=== PATIENT | male | born 1945 | race Caucasian/White ===

== ENCOUNTER 2017-01-04 05:45 | Inpatient (IN) | payer MEDICARE, OTHER ==
[2017-01-03 17:13] VITALS: BMI 32.5
[~2017-01-04] VITALS: Ht 175.3 cm; Wt 100.0 kg
[2017-01-04] VITALS (25 sets, daily range): BP systolic 138–172; BP diastolic 58–77; PULSE 84–112; RESP 16–31; Ht 175.3 cm; Wt 100.0 kg
[2017-01-04] MEDS ORDERED: GABAPENTIN 300 MG CAP PO SCH ×2 (06:00→21:00)
[2017-01-04] MEDS ORDERED: SOD CHLORIDE 0.9% 100 ML, TRANEXAMIC ACID 3,000 MG IRR SCH ×2 (06:00)
[2017-01-04] MEDS ORDERED: traMADol 50 MG TAB PO SCH (06:00)
[2017-01-04] MEDS ORDERED: TRANEXAMIC ACID 1,000 MG in SOD CHLORIDE 0.9% 100 ML IVPB SCH (06:00)
[2017-01-04] MEDS ORDERED: BUPIVACAINE 0.5% (SDV) 30 ML, morphine SULFATE (PF) 8 MG, EPINEPHrine 0.3 MG, KETOROLAC... IRR SCH ×7 (06:00)
[2017-01-04] MEDS ORDERED: CEFAZOLIN 2 GM/50 ML (PMX) 50 ML IVPB SCH (06:00)
[2017-01-04] MEDS ORDERED: DEXAMETHASONE 1 MG TAB PO SCH (06:00)
[2017-01-04] MEDS ORDERED: BUPIVACAINE 0.5%/EPI (SDV) 10 ML INJ ONE (06:42)
[2017-01-04] MEDS ORDERED: THROMBIN 5000 UNIT VIAL ONE (06:42)
[2017-01-04] MEDS ORDERED: POLYMYXIN/BACITRACIN 1L IRRIG ONE (06:43)
[2017-01-04] MEDS ORDERED: CA CHLORIDE 10% 10 ML SYRINGE ONE (06:43)
--- NOTE | 2017-01-04 06:59 | HPN ---
Date/Time of Note Date/Time of Note DATE: 01/04/17 TIME: 06:59 Interval H&P Admission Note Pt. seen H&P reviewed: No system changes ASHLEY DAVILA MD Jan 04, 2017 06:59
[2017-01-04] MEDS ORDERED: SUGAMMADEX SODIUM 200 MG/2 ML VIAL IV ONE (07:00)
[2017-01-04] MEDS ORDERED: HYDROmorphONE 1 MG/ML SYG IV STA (07:48)
[2017-01-04] MEDS ORDERED: ONDANSETRON 4 MG INJ ONE (07:56)
[2017-01-04] MEDS ORDERED: PROPOFOL 20 ML ONE (07:56)
[2017-01-04] MEDS ORDERED: GLYCOPYRROLATE 0.4 MG INJ ONE (07:56)
[2017-01-04] MEDS ORDERED: ROCURONIUM 50 MG INJ ONE (07:56)
[2017-01-04] MEDS ORDERED: CEFAZOLIN 1 GM INJ ONE (07:56)
[2017-01-04] MEDS ORDERED: MIDAZOLAM 1 MG/ML 2 ML INJ ONE (07:56)
[2017-01-04] MEDS ORDERED: FENTAnyl 50 MCG/ML VIAL ONE (07:56)
[2017-01-04] MEDS ORDERED: NEOSTIGMINE 3 MG/3 ML SYRINGE ONE (07:56)
[2017-01-04] MEDS ORDERED: DEXAMETHASONE 4 MG/ML 1 ML INJ ONE (07:57)
[2017-01-04] MEDS ORDERED: ROPIVACAINE 0.5 % 30 ML VIAL ONE (07:57)
[2017-01-04] MEDS ORDERED: IMO2 PO (08:10)
[2017-01-04] MEDS ORDERED: DAPA10TA PO (08:11)
[2017-01-04] MEDS ORDERED: LACT20SO2 PO (08:12)
[2017-01-04] MEDS ORDERED: METO100T13 PO (08:15)
[2017-01-04] MEDS ORDERED: AMLO-147 PO (08:16)
[2017-01-04] MEDS ORDERED: GABA300C16 PO (08:18)
[2017-01-04] MEDS ORDERED: METF-480 PO (08:19)
[2017-01-04] MEDS ORDERED: BACL10TA PO (08:22)
[2017-01-04] MEDS ORDERED: IBUP800T25 PO (08:22)
--- NOTE | 2017-01-04 08:22 | RADRPT ---
PROCEDURE: XR Chest. CLINICAL INDICATION: left shoulder replacement TECHNIQUE: Single frontal view of the chest was obtained COMPARISON: None FINDINGS: Left shoulder arthroplasty hardware is partially imaged. Lower cervical spine fixation hardware is partially imaged. The cardiomediastinal silhouette is within normal limits. There are atherosclerotic calcifications of the thoracic aorta. There is apparent elevation of the right hemidiaphragm. There is mild bibasilar atelectasis. No pneumothorax, pleural effusion, or parenchymal consolidation is identified. There are degenerative changes of the visualized spine and bilateral acromioclavicular joints. IMPRESSION: 1. No evidence of acute cardiopulmonary process. 2. Mild bibasilar atelectasis. 3. Thoracic aortic atherosclerotic disease. RPTAT: EE Physician Niko Date Time Electronically viewed and signed by Physician Niko on 01/04/2017 08:22 /
[2017-01-04] MEDS ORDERED: SIMV10TA PO (08:23)
[2017-01-04] MEDS ORDERED: ASPI-664 PO (08:23)
[2017-01-04] MEDS ORDERED: DULO60CA59 PO (08:23)
[2017-01-04 08:24] LABS: BASOPHILS % 0.4 % (0.0-2.0); EOSINOPHILS # 0.1 10^3/ul (0.0-0.5); EOSINOPHILS % 1.7 % (0.0-7.0); HEMATOCRIT 40.3 % (42.0-52.0); LYMPHOCYTES # 0.9 10^3/ul (0.8-2.9); MEAN CORPUSCULAR HEMOGLOBIN 23.6 pg (29.0-33.0); MEAN CORPUSCULAR HGB CONC 29.8 g/dl (32.0-37.0); MEAN CORPUSCULAR VOLUME 79.2 fl (82.0-101.0); MEAN PLATELET VOLUME 9.6 fl (7.4-10.4); MONOCYTE # 0.4 10^3/ul (0.3-0.9); MONOCYTES % 8.5 % (0.0-11.0); NEUTROPHIL # 3.5 10^3/ul (1.6-7.5); NEUTROPHILS % 71.2 % (39.0-77.0); PLATELET COUNT 179 10^3/UL (140-415); RED BLOOD COUNT 5.09 10^6/ul (4.70-6.10); RED CELL DISTRIBUTION WIDTH 16.3 % (11.5-14.5); WHITE BLOOD COUNT 4.8 10^3/ul (4.8-10.8)
[2017-01-04] MEDS ORDERED: TAMS0.4C2 PO (08:25)
[2017-01-04] MEDS ORDERED: FINA5TAB4 PO (08:26)
[2017-01-04] MEDS ORDERED: MIRT15TA5 PO (08:26)
[2017-01-04 08:33] LABS: ADD UMIC YES; UR ASCORBIC ACID NEGATIVE (NEGATIVE); UR BILIRUBIN (Dip) NEGATIVE (NEGATIVE); UR BLOOD (Dip) 1+ mg/dL (NEGATIVE); UR CLARITY SLIGHTLY CLOUDY (CLEAR); UR COLOR YELLOW (YELLOW); UR GLUCOSE (Dip) 3+ mg/dL (NEGATIVE); UR KETONES (Dip) 1+ mg/dL (NEGATIVE); UR LEUKOCYTE ESTERASE (Dip) NEGATIVE Leu/ul (NEGATIVE); UR NITRITE (Dip) NEGATIVE (NEGATIVE); UR RBC 4 /HPF (0-5); UR SPECIFIC GRAVITY (Dip) 1.028 (1.003-1.030); UR TOTAL PROTEIN (Dip) 2+ mg/dl (NEGATIVE); UR UROBILINOGEN (Dip) NEGATIVE (NEGATIVE)
[2017-01-04 08:48] LABS: ALBUMIN 4.4 g/dl (3.3-4.9); ALBUMIN/GLOBULIN RATIO 1.02; BILIRUBIN,INDIRECT 0.1 mg/dl (0-1.1); BILIRUBIN,TOTAL 0.1 mg/dl (0.2-1.3); TOTAL PROTEIN 8.7 g/dl (6.1-8.1)
[2017-01-04 08:56] LABS: CALCIUM 9.7 mg/dl (8.4-10.2); CREATININE 0.69 mg/dl (0.61-1.24); POTASSIUM 4.1 mmol/L (3.5-5.1)
[2017-01-04 09:01] LABS: INR 0.97; PROTIME 12.9 Sec (12.2-14.2)
[2017-01-04 09:02] LABS: PARTIAL THROMBOPLASTIN TIME 28.9 Sec (25.0-35.0)
[2017-01-04] MEDS ORDERED: LABETALOL HCL 20MG INJ ONE (10:12)
[2017-01-04] MEDS ORDERED: DIPHENHYDRAMINE 50 MG INJ IV PRN ×2 (10:30→12:00)
[2017-01-04] MEDS ORDERED: MEPERIDINE 25 MG INJ IV PRN (10:30)
[2017-01-04] MEDS ORDERED: IPRATROPIUM (NEB) 0.5 MG/2.5 ML AMP HHN PRN (10:30)
[2017-01-04] MEDS ORDERED: TRIMETHOBENZAMIDE 100 MG/ML VIAL IM PRN (10:30)
[2017-01-04] MEDS ORDERED: ONDANSETRON 4 MG INJ IV PRN ×2 (10:30→12:00)
[2017-01-04] MEDS ORDERED: EPHEDrine SULFATE 50 MG/5 ML SYG IV PRN (10:30)
[2017-01-04] MEDS ORDERED: HYDROmorphONE (0.2 MG/ML) 10ML SYG IV PRN ×3 (10:30)
[2017-01-04] MEDS ORDERED: ALBUTEROL 0.083% (NEB) 2.5 MG/3 ML AMP HHN PRN (10:30)
[2017-01-04] MEDS ORDERED: FENTAnyl 50 MCG/ML VIAL IV PRN ×3 (10:30)
[2017-01-04] MEDS ORDERED: OXYCODONE/ACETAMINOPHEN (5/325) TAB PO PRN ×3 (10:30→12:00)
[2017-01-04] MEDS ORDERED: hydrALAzine 20 MG INJ IV PRN (10:30)
[2017-01-04] MEDS ORDERED: LABETALOL HCL 20MG INJ IV PRN (10:30)
[2017-01-04] MEDS ORDERED: MIDAZOLAM 1 MG/ML 2 ML INJ IV PRN (10:30)
--- NOTE | 2017-01-04 11:57 | OPR ---
Date/Time of Note Date/Time of Note DATE: 01/04/17 TIME: 11:53 Operative Report Procedure Date: Jan 04, 2017 Preoperative Diagnosis Failed total shoulder replacement, left Postoperative Diagnosis 1 Failed left total shoulder replacement 2 Massive unrepairable rotator cuff tear Operation Performed Revision of left total shoulder replacement to reverse total shoulder replacement. Surgeon: ASHLEY DAVILA MD Breaker Machine Operator: NATALIE GUTIERREZ MD Anesthesia: general Estimated Blood Loss: 50 - 100 ml's Complications: None Pt Condition Post Procedure: stable Disposition: PACU Procedure Description MASTER CRAFTSMAN SURGEON: Natalie Gutierrez MD was asked to be present at my request as a result of the complexity associated with this procedure. This includes positioning of the extremity, manipulation and protection of the neurovascular structures. In my opinion, the assistance offered by a surgical attendant is insufficient and Dr. Gutierrez should be compensated for his time PROCEDURE IN DETAIL: Following the administration of general endotracheal anesthesia the patient was placed in the beachchair position. The left upper extremity was seen to be subluxed in dislocated anterior and superiorly. The previously made incision was then extended proximally after sterile prep and drape of the extremity. The incision was then carried through the subdeltoid plane and the deltoid was retracted laterally. Significant scar tissue was encountered. The humeral head was then delivered and seen to be subluxed superiorly with no rotator cuff superiorly. There is a very small portion of the subscapularis that was intact and the posterior cuff was also intact. The humeral component was then removed relatively atraumatically. Attention was then directed to the glenoid. The glenoid baseplate which was a metal-backed baseplate, was well fixed. This was trabecular metal. The polyethylene liner was removed completely and then using a series of drilling and dilators a central drill hole was then created in anticipation of placement of a baseplate. A [place] standard baseplate with a 10 mm central peg was then used for fixation on the glenoid face. The 4 peripheral screws were then fixed with solid fixation. A 38 mm glenoid sphere was then applied with solid fixation. Attention was then directed back to the humerus. The humerus was then reamed up to the 12 mm size and an extended length 12 mm humeral component with a standard metaphysis was then implanted. An additional 10 mm paper box cutter was then used for stability as well as a 9 mm polyethylene liner. Good stable fixation was obtained. The joint was then thoroughly irrigated taken through full range of motion with no instability. Closure was in layers followed by a perineal dressing. The final cover was watertight. Estimated blood loss was procedure was approximately 100 cc postoperative radiographs will be obtained in the recovery room. ASHLEY DAVILA MD Jan 04, 2017 11:57
--- NOTE | 2017-01-04 11:58 | PDOCDIS ---
Discharge Instructions DIAGNOSIS Discharge Diagnosis Failed left total shoulder replacement CONDITION Patient Condition: Good HOME CARE INSTRUCTIONS: Diet Instructions: Regular ACTIVITY: Activity Restrictions: Slowly Increase Activity Bathing Restrictions: Shower FOLLOW UP/APPOINTMENTS Follow-up Plan 2 weeks postoperatively SCHOOL/WORK RELEASE May return to School/Work with: With Restrictions School/Work Release Comment: Sling usage for 1 month. In addition, tabletop activities with 5 pound ASHLEY Hermosillo MD Jan 04, 2017 11:58
[2017-01-04] MEDS ORDERED: MAGNESIUM HYDROXIDE 30ML CUP PO PRN (12:00)
[2017-01-04] MEDS ORDERED: LOPERAMIDE 2 MG CAP PO PRN (12:00)
[2017-01-04] MEDS ORDERED: morphine 4 MG/ML VIAL IV PRN (12:00)
[2017-01-04] MEDS ORDERED: TRANEXAMIC ACID 1,000 MG in SOD CHLORIDE 0.9% 100 ML IV ONE (12:00)
[2017-01-04] MEDS ORDERED: ACETAMINOPHEN 500 MG TAB PO PRN (12:00)
[2017-01-04] MEDS ORDERED: KETOROLAC 15 MG INJ IV PRN (12:00)
[2017-01-04] MEDS ORDERED: ZOLPIDEM 5 MG TAB PO PRN (12:00)
[2017-01-04] MEDS ORDERED: INSULIN REGULAR 10 ML INJ SC ONE (12:30)
--- NOTE | 2017-01-04 12:54 | RADRPT ---
PROCEDURE: Shoulder radiograph. CLINICAL INDICATION: Postoperative examination. COMPARISON: None relevant listed. TECHNIQUE: Internal rotation and Y-views of the left shoulder. FINDINGS: Alignment of the left shoulder arthroplasty is anatomic. No hardware fracture. No suspicious santiago-hardware lucency. There are a few scattered metallic densities about the operative bed. Moderate soft tissue swelling about the operative bed. Moderate joint space narrowing with marginal osteophytes at the acromioclavicular joint. IMPRESSION: Alignment of left shoulder arthroplasty is anatomic. RPTAT: PP Physician Halle Date Time Electronically viewed and signed by Physician Halle on 01/04/2017 12:54 LG/
[2017-01-04] MEDS ORDERED: GLUCOSE GEL 15 GRAM TUBE PO PRN ×2 (13:00)
[2017-01-04] MEDS ORDERED: DEXTROSE 50% 50 ML SYRINGE IV PRN ×2 (13:00)
[2017-01-04] MEDS ORDERED: GLUCAGON 1 MG INJ IM PRN (13:00)
[2017-01-04] MEDS ORDERED: GLUCOSE GEL 15 GRAM TUBE BUCCAL PRN (13:00)
--- NOTE | 2017-01-04 14:31 | RADRPT ---
Vent Rate: 105 bpm RR Interval: 0 msec ID Interval: 150 msec QRS Duration: 84 msec QT Interval: 348 msec QTC Interval: 459 msec P-R-T [place]: -2 - 26 - 2 degrees Sinus tachycardia Otherwise normal ECG Electronically Signed By: Daniel Hawkins [id number]
[2017-01-04] MEDS: CEFAZOLIN 1 GM/50 ML (PMX) 50 ML IVPB SCH ×2 (14:59→21:23)
[2017-01-04] MEDS: [UNRECOGNIZED DRUG - OTHER] XX SCH ×2 (16:00→23:32)
[2017-01-04] MEDS: DAPAGLIFLOZIN XX SCH ×2 (16:00→23:32)
[2017-01-04] MEDS: metFORMIN 850 MG TAB PO SCH (18:27)
[2017-01-04] MEDS: DEXAMETHASONE 2 MG TAB PO SCH ×2 (18:28→23:28)
[2017-01-04] MEDS: morphine 4 MG/ML VIAL IV PRN (19:55)
[2017-01-04] MEDS: BACLOFEN 10 MG TAB PO SCH (20:35)
[2017-01-04] MEDS: LACTULOSE 30ML CUP PO SCH (20:35)
[2017-01-04] MEDS: SENNA/DOCUSATE NA (8.6MG/50MG) TAB PO SCH (20:36)
[2017-01-04] MEDS ORDERED: MIRTAZAPINE 15 MG TAB PO SCH (21:00)
[2017-01-04] MEDS ORDERED: ATORVASTATIN 10 MG TAB PO SCH (21:00)
[2017-01-04] MEDS ORDERED: FINASTERIDE 5 MG TAB PO SCH (21:00)
[2017-01-04] MEDS ORDERED: TAMSULOSIN (SR) 0.4 MG CAP PO SCH (21:00)
[2017-01-04] MEDS: METOPROLOL (XL) 100 MG TAB PO SCH (21:23)
[2017-01-05 02:00] VITALS: BP 143/71; RESP 20
[2017-01-05] MEDS: morphine 4 MG/ML VIAL IV PRN (04:40)
[2017-01-05] MEDS: DEXAMETHASONE 2 MG TAB PO SCH (06:00)
[2017-01-05] MEDS: CEFAZOLIN 1 GM/50 ML (PMX) 50 ML IVPB SCH (06:00)
--- NOTE | 2017-01-05 06:56 | PN ---
Date/Time of Note Date/Time of Note DATE: 01/05/17 TIME: 06:56 24 hour Interval Summary Patient is awake and alert with minimal discomfort this morning. Physical Exam Physical examination: His wound is clean and dry. He is neurologically intact. He has no signs of DVT. Vital Signs Date Time Temp Pulse Resp B/P Pulse Ox O2 Delivery O2 Flow Rate FiO2 01/05/17 02:00 97.3 78 20 143/71 97 01/04/17 20:00 Nasal Cannula 2.0 Intake and Output 01/04/17 01/04/17 01/05/17 15:00 23:00 07:00 Intake Total 2200 ml 1100 ml 650 ml Output Total 50 ml 300 ml 900 ml Balance 2150 ml 800 ml -250 ml VTE Prophylaxis VTE Prophylaxis Intervention: anti-embolic stocking Lines/Catheters IV Catheter Type: Saline Lock Wood in Place: No Results Result Diagram: 01/04/17 0802 01/04/17 0802 Results 24hrs Laboratory Tests Test 01/04/17 07:42 01/04/17 08:02 01/04/17 12:14 01/04/17 13:18 Bedside Glucose 211 239 H 214 White Blood Count 4.8 Red Blood Count 5.09 Hemoglobin 12.0 L Hematocrit 40.3 L Mean Corpuscular Volume 79.2 L Mean Corpuscular Hemoglobin 23.6 L Mean Corpuscular Hemoglobin Concent 29.8 L Red Cell Distribution Width 16.3 H Platelet Count 179 Mean Platelet Volume 9.6 Neutrophils % 71.2 Lymphocytes % 18.0 Monocytes % 8.5 Eosinophils % 1.7 Basophils % 0.4 Nucleated Red Blood Cells % 0.0 Neutrophils # 3.5 Lymphocytes # 0.9 Monocytes # 0.4 Eosinophils # 0.1 Basophils # 0.0 Nucleated Red Blood Cells # 0.0 Prothrombin Time 12.9 Prothrombin Time Ratio 1.0 INR International Normalized Ratio 0.97 Activated Partial Thromboplast Time 28.9 Urine Color YELLOW Urine Clarity SLIGHTLY CLOUDY A Urine pH 5.0 Urine Specific [place] 1.028 Urine Ketones 1+ H Urine Nitrite NEGATIVE Urine Bilirubin NEGATIVE Urine Urobilinogen NEGATIVE Urine Leukocyte Esterase NEGATIVE Urine Microscopic RBC 4 Urine Microscopic WBC 1 Urine Hemoglobin 1+ H Urine Glucose 3+ H Urine Total Protein 2+ H Sodium Level 146 H Potassium Level 4.1 Chloride Level 102 Carbon Dioxide Level 26 Anion Gap 22 H Blood Urea Nitrogen 16 Creatinine 0.69 Glucose Level 190 Calcium Level 9.7 Total Bilirubin 0.1 L Direct Bilirubin 0.00 Indirect Bilirubin 0.1 Aspartate Amino Transf (AST/SGOT) 28 Alanine Aminotransferase (ALT/SGPT) 33 Alkaline Phosphatase 100 Total Protein 8.7 H Albumin 4.4 Globulin 4.30 H Albumin/Globulin Ratio 1.02 Test 01/04/17 17:35 Bedside Glucose 265 H Assessment/Plan Assessment/Plan Assessment: The patient will be discharged this morning to [facility]. This has been previously arranged. He will follow-up in the office in 2 weeks. Medications Medications Home Meds Reported Medications Mirtazapine* (Mirtazapine*) 15 Mg Tablet, 15 MG PO HS, TAB 01/04/17 Finasteride* (Finasteride*) 5 Mg Tablet, 5 MG PO QHS, TAB 01/04/17 Tamsulosin Hcl* (Tamsulosin Hcl*) 0.4 Mg Cap.er.24h, 0.4 MG PO HS, CAP 01/04/17 Simvastatin* (Zocor*) 10 Mg Tablet, 10 MG PO QHS, #30 TAB 01/04/17 Duloxetine Hcl* (Duloxetine Hcl*) 60 Mg Capsule.dr, 60 MG PO QAM, #30 CAP 01/04/17 Aspirin* (Aspirin* EC) 81 Mg Tablet.dr, 81 MG PO DAILY, TAB 01/04/17 Baclofen* (Baclofen*) 10 Mg Tablet, 10 MG PO BID, TAB 01/04/17 Ibuprofen* (Ibuprofen*) 800 Mg Tab, 800 MG PO TID Y for PAIN, TAB 01/04/17 Metformin* (Glucophage*) 850 Mg Tablet, 850 MG PO BID, #30 TAB 01/04/17 Gabapentin* (Gabapentin*) 300 Mg Capsule, 900 MG PO TID, #270 CAP 01/04/17 Amlodipine Besylate* (Amlodipine Besylate*) 10 Mg Tablet, 10 MG PO QAM, #30 TAB 01/04/17 Metoprolol Succinate* (Toprol XL*) 100 Mg Tab.sr.24h, 100 MG PO BID, #30 TAB 01/04/17 Lactulose* (Lactulose*) 20 Gm/30 Ml Solution, 20 GM PO TID, ML 01/04/17 Dapagliflozin Propanediol (Farxiga) 10 Mg Tablet, 10 MG PO DAILY, #30 TAB 01/04/17 Loperamide Hcl* (Loperamide Hcl*) 2 Mg Cap, 2 MG PO QID Y for DIARRHEA, CAP 01/04/17 ASHLEY DAVILA MD Jan 05, 2017 06:56
--- NOTE | 2017-01-05 06:58 | DS ---
Date/Time of Note Date/Time of Note DATE: 01/05/17 TIME: 06:57 Discharge Summary Admission/Discharge Info Admit Date/Time Jan 04, 2017 at 05:45 Discharge Date/Time January 05, 2017 Discharge Diagnosis Failed left total shoulder replacement Patient Condition: Good Procedures Revision of left total shoulder to reverse total shoulder Hx of Present Illness Instability of the left total shoulder replacement secondary to rotator cuff tearing Hospital Course Patient was admitted and underwent an uncomplicated procedure. On postoperative day #1 he was afebrile and stable. He is to be discharged to his nursing care facility to be followed up in the office in 2 weeks Home Meds Reported Medications Mirtazapine* (Mirtazapine*) 15 Mg Tablet, 15 MG PO HS, TAB 01/04/17 Finasteride* (Finasteride*) 5 Mg Tablet, 5 MG PO QHS, TAB 01/04/17 Tamsulosin Hcl* (Tamsulosin Hcl*) 0.4 Mg Cap.er.24h, 0.4 MG PO HS, CAP 01/04/17 Simvastatin* (Zocor*) 10 Mg Tablet, 10 MG PO QHS, #30 TAB 01/04/17 Duloxetine Hcl* (Duloxetine Hcl*) 60 Mg Capsule.dr, 60 MG PO QAM, #30 CAP 01/04/17 Aspirin* (Aspirin* EC) 81 Mg Tablet.dr, 81 MG PO DAILY, TAB 01/04/17 Baclofen* (Baclofen*) 10 Mg Tablet, 10 MG PO BID, TAB 01/04/17 Ibuprofen* (Ibuprofen*) 800 Mg Tab, 800 MG PO TID Y for PAIN, TAB 01/04/17 Metformin* (Glucophage*) 850 Mg Tablet, 850 MG PO BID, #30 TAB 01/04/17 Gabapentin* (Gabapentin*) 300 Mg Capsule, 900 MG PO TID, #270 CAP 01/04/17 Amlodipine Besylate* (Amlodipine Besylate*) 10 Mg Tablet, 10 MG PO QAM, #30 TAB 01/04/17 Metoprolol Succinate* (Toprol XL*) 100 Mg Tab.sr.24h, 100 MG PO BID, #30 TAB 01/04/17 Lactulose* (Lactulose*) 20 Gm/30 Ml Solution, 20 GM PO TID, ML 01/04/17 Dapagliflozin Propanediol (Farxiga) 10 Mg Tablet, 10 MG PO DAILY, #30 TAB 01/04/17 Loperamide Hcl* (Loperamide Hcl*) 2 Mg Cap, 2 MG PO QID Y for DIARRHEA, CAP 01/04/17 Primary Care Provider Naveen Love Pending Labs Laboratory Tests Test 01/04/17 07:42 01/04/17 08:02 01/04/17 12:14 01/04/17 13:18 Bedside Glucose 211mg/dL (70-220) 239mg/dL (70-220) 214mg/dL (70-220) White Blood Count 4.810^3/ul (4.8-10.8) Red Blood Count 5.0910^6/ul (4.70-6.10) Hemoglobin 12.0g/dl (14.0-18.0) Hematocrit 40.3% (42.0-52.0) Mean Corpuscular Volume 79.2fl (82.0-101.0) Mean Corpuscular Hemoglobin 23.6pg (29.0-33.0) Mean Corpuscular Hemoglobin Concent 29.8g/dl (32.0-37.0) Red Cell Distribution Width 16.3% (11.5-14.5) Platelet Count 10562^3/UL (140-415) Mean Platelet Volume 9.6fl (7.4-10.4) Neutrophils % 71.2% (39.0-77.0) Lymphocytes % 18.0% (15.0-51.0) Monocytes % 8.5% (0.0-11.0) Eosinophils % 1.7% (0.0-7.0) Basophils % 0.4% (0.0-2.0) Nucleated Red Blood Cells % 0.0/100WBC (0.0-0.0) Neutrophils # 3.510^3/ul (1.6-7.5) Lymphocytes # 0.910^3/ul (0.8-2.9) Monocytes # 0.410^3/ul (0.3-0.9) Eosinophils # 0.110^3/ul (0.0-0.5) Basophils # 0.010^3/ul (0.0-0.1) Nucleated Red Blood Cells # 0.010^3/ul (0.0-0.0) Prothrombin Time 12.9Sec (12.2-14.2) Prothrombin Time Ratio 1.0 INR International Normalized Ratio 0.97 Activated Partial Thromboplast Time 28.9Sec (25.0-35.0) Urine Color YELLOW (YELLOW) Urine Clarity SLIGHTLY CLOUDY (CLEAR) Urine pH 5.0 (5.0-9.0) Urine Specific [place] 1.028 (1.003-1.030) Urine Ketones 1+mg/dL (NEGATIVE) Urine Nitrite NEGATIVEmg/dL (NEGATIVE) Urine Bilirubin NEGATIVEmg/dL (NEGATIVE) Urine Urobilinogen NEGATIVEmg/dL (NEGATIVE) Urine Leukocyte Esterase NEGATIVELeu/ul (NEGATIVE) Urine Microscopic RBC 4/HPF (0-5) Urine Microscopic WBC 1/HPF (0-5) Urine Hemoglobin 1+mg/dL (NEGATIVE) Urine Glucose 3+mg/dL (NEGATIVE) Urine Total Protein 2+mg/dl (NEGATIVE) Sodium Level 146mmol/L (135-144) Potassium Level 4.1mmol/L (3.5-5.1) Chloride Level 102mmol/L (97-110) Carbon Dioxide Level 26mmol/L (21-31) Anion Gap 22 (8-16) Blood Urea Nitrogen 16mg/dl (7-20) Creatinine 0.69mg/dl (0.61-1.24) Glucose Level 190mg/dl (70-220) Calcium Level 9.7mg/dl (8.4-10.2) Total Bilirubin 0.1mg/dl (0.2-1.3) Direct Bilirubin 0.00mg/dl (0.00-0.20) Indirect Bilirubin 0.1mg/dl (0-1.1) Aspartate Amino Transf (AST/SGOT) 28IU/L (15-46) Alanine Aminotransferase (ALT/SGPT) 33IU/L (13-69) Alkaline Phosphatase 100IU/L (42-121) Total Protein 8.7g/dl (6.1-8.1) Albumin 4.4g/dl (3.3-4.9) Globulin 4.30g/dl (1.3-3.2) Albumin/Globulin Ratio 1.02 Test 01/04/17 17:35 Bedside Glucose 265mg/dL (70-220) ASHLEY DAVILA MD Jan 05, 2017 06:58
[2017-01-05 08:13] VITALS: BP 141/69; RESP 20
[2017-01-05] MEDS: SENNA/DOCUSATE NA (8.6MG/50MG) TAB PO SCH (08:38)
[2017-01-05] MEDS: BACLOFEN 10 MG TAB PO SCH (08:38)
[2017-01-05] MEDS: metFORMIN 850 MG TAB PO SCH (08:39)
[2017-01-05] MEDS: DAPAGLIFLOZIN XX SCH ×2 (08:39→16:16)
[2017-01-05] MEDS: [UNRECOGNIZED DRUG - OTHER] XX SCH ×2 (08:39→16:16)
[2017-01-05] MEDS: LACTULOSE 30ML CUP PO SCH ×2 (08:40→13:00)
[2017-01-05] MEDS: METOPROLOL (XL) 100 MG TAB PO SCH (08:42)
[2017-01-05] MEDS ORDERED: AMLODIPINE 10 MG TAB PO SCH (09:00)
[2017-01-05] MEDS ORDERED: NON-FORMULARY/PATIENT OWN MED (Dapagliflozin Propanediol (Farxiga) 10 MG) PO SCH (09:00)
[2017-01-05] MEDS ORDERED: ASPIRIN 81 MG TAB PO SCH (09:00)
[2017-01-05] MEDS ORDERED: DULOXETINE 30 MG CAP DR PO SCH (09:00)
[2017-01-05] MEDS: OXYCODONE/ACETAMINOPHEN (5/325) TAB PO PRN ×2 (09:57→13:49)
[2017-01-05 15:00] VITALS: BP 130/72; RESP 18
== END 2017-01-05 17:35 | DRG 483 ==
LOC: REC 05:45 → MS1 13:39
PROVIDERS: ADMIT Orthopaedic Surgery; ATTEND Orthopaedic Surgery
PROC: 0RPK0JZ Removal of Synthetic Substitute from Left Shoulder Joint, Open Approach (ICD-10-PCS; 2017-01-04)
PROC: 0RRK00Z Replacement of Left Shoulder Joint with Reverse Ball and Socket Synthetic Substitute, Open Approach (ICD-10-PCS; principal; 2017-01-04 09:30)
DX: T84.028A Dislocation of other internal joint prosthesis, initial encounter (principal); S43.422A Sprain of left rotator cuff capsule, initial encounter
CPT/HCPCS: 71010; 73030; 80053; 81001; 82962; 85025; 85610; 85730; 86999; 88304; 88311; 93005; 97164; C1776; J0171; J0690; J0735; J1100; J1170; J1815; J1885; J2250; J2270; J2274; J2405; J2710; J2795; J3010; J3370